=== PATIENT | male | born 1955 | race African-American/Black ===

== ENCOUNTER 2020-02-06 04:07 | Emergency (ER) | payer OTHER ==
[~2020-02-06] VITALS: Ht 182.9 cm; Wt 91.0 kg
[2020-02-06] MEDS ORDERED: FUROSEMIDE 40MG TABLET PO ONE (05:00)
[2020-02-06 05:32] VITALS: BP 161/98
== END 2020-02-06 05:33 | disposition home or self-care (01) ==
LOC: ER 04:07
DX: I50.9 Heart failure, unspecified (principal); R60.0 Localized edema; R73.03 Prediabetes; Z76.0 Encounter for issue of repeat prescription; Z86.73 Personal history of transient ischemic attack (TIA), and cerebral infarction without residual deficits
CPT/HCPCS: 99283

== ENCOUNTER 2020-02-09 04:20 | Inpatient (IN) | payer OTHER ==
[~2020-02-09] VITALS: Ht 185.4 cm; Wt 104.8 kg
[2020-02-09 04:00] VITALS: BP 118/94
[2020-02-09] MEDS ORDERED: ASPIRIN 81MG TABLET PO ONE (06:30)
[2020-02-09] MEDS ORDERED: FUROSEMIDE 40MG/4ML VIAL IV ONE (06:30)
[2020-02-09] MEDS ORDERED: NITROGLYCERIN 0.4MG TABLET SL SL PRN (06:30)
[2020-02-09 06:36] LABS: HEMATOCRIT. 50.1 % (42.0-52.0); HEMOGLOBIN. 16.7 g/dL (14.0-18.0); MEAN CORPUSCULAR HEMOGLOBIN 30.4 pg (28.0-32.0); MEAN CORPUSCULAR VOLUME 91.2 fL (80.0-94.0); MEAN PLATELET VOLUME 9.2 fl (7.4-10.4); PLATELET 140 x1000/uL (130-400); RED BLOOD CELL COUNT 5.49 mill/uL (4.7-6.1); RED CELL DISTRIBUTION WIDTH 15.3 % (11.6-14.6)
[2020-02-09 06:49] LABS: CHLORIDE 106 mEq/L (98-107)
[2020-02-09 06:54] LABS: ETHANOL BLOOD < 10 mg/dL
[2020-02-09 07:23] LABS: PLATELET ESTIMATE NORMAL
[2020-02-09 08:20] LABS: CLARITY URINE CLEAR (CLEAR); COLOR URINE DARK YELLOW (YELLOW); KETONES URINE TRACE (NEGATIVE); LEUKOCYTE ESTERASE URINE NEGATIVE (NEGATIVE); NITRITE URINE NEGATIVE (NEGATIVE); OCCULT BLOOD URINE NEGATIVE (NEGATIVE); PROTEIN URINE 2+ (NEGATIVE); SPECIFIC GRAVITY URINE 1.021 (1.005-1.030)
[2020-02-09 10:06] LABS: *AMPHETAMINES SCREEN URINE NEGATIVE (NEGATIVE); *BARBITURATES SCREEN URINE NEGATIVE (NEGATIVE); *BENZODIAZEPINES SCREEN URINE NEGATIVE (NEGATIVE)
[2020-02-09 10:07] LABS: *COCAINE SCREEN URINE NEGATIVE (NEGATIVE); CANNABINOID URINE SCREEN NEGATIVE (NEGATIVE); METHADONE URINE SCREEN NEGATIVE (NEGATIVE); OPIATES URINE SCREEN NEGATIVE (NEGATIVE); PHENCYCLIDINE URINE SCREEN NEGATIVE (NEGATIVE)
[2020-02-09] MEDS ORDERED: DOCUSATE SODIUM 100MG CAPSULE PO PRN (11:30)
[2020-02-09] MEDS ORDERED: ACETAMINOPHEN 325MG TABLET PO PRN (11:30)
[2020-02-09] MEDS ORDERED: ONDANSETRON HCL 4MG/2ML INJ IV PRN (11:30)
[2020-02-09] MEDS ORDERED: IPRATROPIUM/ALBUTEROL 0.5-3(2.5)MG/3ML NEB NEB PRN (11:30)
[2020-02-09] MEDS ORDERED: CLONIDINE 0.1MG TABLET PO PRN (11:30)
[2020-02-09] MEDS ORDERED: DEXTROSE 50% WATER 50ML SYRINGE IV PRN (11:45)
[2020-02-09 11:55] LABS: CHLORIDE 105 mEq/L (98-107)
[2020-02-09] MEDS: LISINOPRIL 5MG TABLET PO SCH (12:06)
[2020-02-09] MEDS: ENOXAPARIN 30MG/0.3ML SYR SUBCUT SCH ×2 (12:07→21:46)
[2020-02-09] MEDS: CARVEDILOL 3.125 MG TABLET PO SCH ×2 (12:07→21:43)
[2020-02-09 12:10] LABS: CREATINE KINASE MB FRACTION 2.4 ng/mL (0.5-3.6)
[2020-02-09] MEDS: POTASSIUM CHLORIDE 20MEQ TABLET SR PO SCH (12:14)
[2020-02-09] MEDS: BLOOD SUGAR DIAGNOSTIC STRIP TEST SCH ×3 (12:59→21:46)
[2020-02-09] MEDS: INSULIN LISPRO 100 UNITS/ML SUBCUT SCH ×3 (13:30→21:00)
[2020-02-09 15:12] LABS: CREATINE KINASE MB FRACTION 2.4 ng/mL (0.5-3.6)
[2020-02-09 16:00] VITALS: BP 118/94
[2020-02-09] MEDS: FUROSEMIDE 40MG/4ML VIAL IV SCH (18:42)
[2020-02-09 20:26] VITALS: BP 121/82
[2020-02-09 23:30] LABS: CREATINE KINASE MB FRACTION 2.2 ng/mL (0.5-3.6)
[2020-02-10 00:39] VITALS: BP 113/86
[2020-02-10 04:00] VITALS: BP 138/94
[2020-02-10] MEDS: FUROSEMIDE 40MG/4ML VIAL IV SCH ×2 (06:47→16:47)
[2020-02-10] MEDS: INSULIN LISPRO 100 UNITS/ML SUBCUT SCH ×4 (07:15→20:55)
[2020-02-10 07:20] LABS: BASOPHILS % 0.7 % (0.0-2.0); EOSINOPHILS % 1.5 % (0.0-5.0); HEMATOCRIT. 48.2 % (42.0-52.0); HEMOGLOBIN. 16.1 g/dL (14.0-18.0); LYMPHOCYTES % 27.9 % (20.0-50.0); MEAN CORPUSCULAR HEMOGLOBIN 30.4 pg (28.0-32.0); MEAN CORPUSCULAR VOLUME 90.8 fL (80.0-94.0); MEAN PLATELET VOLUME 10.1 fl (7.4-10.4); NEUTROPHILS % 57.9 % (40.0-76.0); PLATELET 130 x1000/uL (130-400); RED BLOOD CELL COUNT 5.31 mill/uL (4.7-6.1); RED CELL DISTRIBUTION WIDTH 14.7 % (11.6-14.6)
[2020-02-10] MEDS: BLOOD SUGAR DIAGNOSTIC STRIP TEST SCH ×4 (07:28→20:55)
[2020-02-10 08:00] VITALS: BP 139/93
[2020-02-10] MEDS: ENOXAPARIN 30MG/0.3ML SYR SUBCUT SCH ×2 (08:46→20:43)
[2020-02-10] MEDS: POTASSIUM CHLORIDE 20MEQ TABLET SR PO SCH (08:46)
[2020-02-10] MEDS: CARVEDILOL 3.125 MG TABLET PO SCH (08:46)
[2020-02-10] MEDS: LISINOPRIL 5MG TABLET PO SCH (08:46)
[2020-02-10 12:00] VITALS: BP 118/91
[2020-02-10 16:00] VITALS: BP 104/83
[2020-02-10 20:00] VITALS: BP 123/99
[2020-02-10] MEDS: CARVEDILOL 6.25 MG TABLET PO SCH (20:54)
[2020-02-11] VITALS: BP 127/90
[2020-02-11 04:00] VITALS: BP 118/83
[2020-02-11] MEDS: INSULIN LISPRO 100 UNITS/ML SUBCUT SCH ×4 (06:17→21:00)
[2020-02-11] MEDS: FUROSEMIDE 40MG/4ML VIAL IV SCH ×2 (06:38→17:36)
[2020-02-11 07:01] LABS: BASOPHILS % 1.1 % (0.0-2.0); EOSINOPHILS % 1.4 % (0.0-5.0); HEMATOCRIT. 49.9 % (42.0-52.0); HEMOGLOBIN. 16.8 g/dL (14.0-18.0); LYMPHOCYTES % 26.9 % (20.0-50.0); MEAN CORPUSCULAR HEMOGLOBIN 30.3 pg (28.0-32.0); MEAN CORPUSCULAR VOLUME 90.1 fL (80.0-94.0); MEAN PLATELET VOLUME 10.2 fl (7.4-10.4); MONOCYTES % 11.8 % (2.0-8.0); NEUTROPHILS % 58.8 % (40.0-76.0); PLATELET 144 x1000/uL (130-400); RED BLOOD CELL COUNT 5.53 mill/uL (4.7-6.1); RED CELL DISTRIBUTION WIDTH 14.9 % (11.6-14.6)
[2020-02-11] MEDS: BLOOD SUGAR DIAGNOSTIC STRIP TEST SCH ×4 (07:05→21:43)
[2020-02-11 07:15] LABS: CHLORIDE 103 mEq/L (98-107)
[2020-02-11 08:00] VITALS: BP 103/83
[2020-02-11] MEDS: POTASSIUM CHLORIDE 20MEQ TABLET SR PO SCH (08:59)
[2020-02-11] MEDS: ENOXAPARIN 30MG/0.3ML SYR SUBCUT SCH ×2 (09:00→22:03)
[2020-02-11] MEDS: CARVEDILOL 6.25 MG TABLET PO SCH ×2 (09:00→22:02)
[2020-02-11] MEDS: LISINOPRIL 5MG TABLET PO SCH (09:00)
[2020-02-11 12:00] VITALS: BP 131/99
[2020-02-11 16:27] VITALS: BP 124/88
[2020-02-11 20:00] VITALS: BP 122/88
[2020-02-11] MEDS ORDERED: DILTIAZEM HCL 5MG/ML 5ML VIAL IV PRN (21:16)
[2020-02-11] MEDS ORDERED: MAGNESIUM 2 G PREMIX 50 ML IV NR (23:00)
[2020-02-12] VITALS (7 sets, daily range): BP systolic 105–150; BP diastolic 80–91
[2020-02-12] MEDS: BLOOD SUGAR DIAGNOSTIC STRIP TEST SCH ×4 (06:08→21:08)
[2020-02-12] MEDS: INSULIN LISPRO 100 UNITS/ML SUBCUT SCH ×4 (06:08→21:11)
[2020-02-12 06:11] LABS: BASOPHILS % 0.7 % (0.0-2.0); EOSINOPHILS % 1.4 % (0.0-5.0); HEMOGLOBIN. 16.3 g/dL (14.0-18.0); LYMPHOCYTES % 27.8 % (20.0-50.0); MEAN CORPUSCULAR HEMOGLOBIN 30.4 pg (28.0-32.0); MEAN CORPUSCULAR VOLUME 89.4 fL (80.0-94.0); MEAN PLATELET VOLUME 9.9 fl (7.4-10.4); MONOCYTES % 13.7 % (2.0-8.0); NEUTROPHILS % 56.4 % (40.0-76.0); PLATELET 140 x1000/uL (130-400); RED BLOOD CELL COUNT 5.37 mill/uL (4.7-6.1)
[2020-02-12] MEDS: FUROSEMIDE 40MG/4ML VIAL IV SCH ×2 (06:27→16:30)
[2020-02-12 07:42] LABS: CHLORIDE 105 mEq/L (98-107)
[2020-02-12] MEDS: POTASSIUM CHLORIDE 20MEQ TABLET SR PO SCH (10:09)
[2020-02-12] MEDS: LISINOPRIL 5MG TABLET PO SCH (10:09)
[2020-02-12] MEDS: CARVEDILOL 6.25 MG TABLET PO SCH ×2 (10:10→21:08)
[2020-02-12] MEDS: ENOXAPARIN 30MG/0.3ML SYR SUBCUT SCH ×2 (10:10→21:07)
[2020-02-13] VITALS (7 sets, daily range): BP systolic 95–129; BP diastolic 62–94
[2020-02-13] MEDS: BLOOD SUGAR DIAGNOSTIC STRIP TEST SCH ×4 (06:12→21:23)
[2020-02-13] MEDS: INSULIN LISPRO 100 UNITS/ML SUBCUT SCH ×4 (06:16→21:23)
[2020-02-13] MEDS: FUROSEMIDE 40MG/4ML VIAL IV SCH ×2 (06:16→18:29)
[2020-02-13 07:14] LABS: BASOPHILS % 0.8 % (0.0-2.0); EOSINOPHILS % 1.7 % (0.0-5.0); HEMATOCRIT. 47.6 % (42.0-52.0); HEMOGLOBIN. 16.3 g/dL (14.0-18.0); LYMPHOCYTES % 30.8 % (20.0-50.0); MEAN CORPUSCULAR HEMOGLOBIN 30.6 pg (28.0-32.0); MEAN CORPUSCULAR VOLUME 89.5 fL (80.0-94.0); MEAN PLATELET VOLUME 9.9 fl (7.4-10.4); NEUTROPHILS % 52.7 % (40.0-76.0); PLATELET 128 x1000/uL (130-400); RED BLOOD CELL COUNT 5.32 mill/uL (4.7-6.1)
[2020-02-13 08:00] LABS: CHLORIDE 105 mEq/L (98-107)
[2020-02-13] MEDS: LISINOPRIL 5MG TABLET PO SCH (09:45)
[2020-02-13] MEDS: CARVEDILOL 6.25 MG TABLET PO SCH ×2 (09:45→21:00)
[2020-02-13] MEDS: ENOXAPARIN 30MG/0.3ML SYR SUBCUT SCH ×2 (09:45→21:23)
[2020-02-13] MEDS: POTASSIUM CHLORIDE 20MEQ TABLET SR PO SCH (09:46)
[2020-02-14] VITALS: BP 118/54
[2020-02-14] MEDS: FUROSEMIDE 40MG/4ML VIAL IV SCH ×2 (06:41→17:27)
[2020-02-14] MEDS: BLOOD SUGAR DIAGNOSTIC STRIP TEST SCH ×4 (06:55→20:24)
[2020-02-14] MEDS: INSULIN LISPRO 100 UNITS/ML SUBCUT SCH ×4 (06:55→20:24)
[2020-02-14 08:00] VITALS: BP 101/70
[2020-02-14] MEDS: LISINOPRIL 5MG TABLET PO SCH (09:00)
[2020-02-14] MEDS: CARVEDILOL 6.25 MG TABLET PO SCH ×2 (09:00→20:23)
[2020-02-14] MEDS: POTASSIUM CHLORIDE 20MEQ TABLET SR PO SCH (09:19)
[2020-02-14] MEDS: ENOXAPARIN 30MG/0.3ML SYR SUBCUT SCH ×2 (09:19→20:24)
[2020-02-14 11:59] VITALS: BP 122/79
[2020-02-14] MEDS ORDERED: COR6 PO (12:16)
[2020-02-14] MEDS ORDERED: LISI-186 PO (12:16)
[2020-02-14] MEDS ORDERED: POTA20TA82 PO (12:16)
[2020-02-14] MEDS ORDERED: FURO40TA5 MT (12:16)
[2020-02-14 16:00] VITALS: BP 106/80
[2020-02-14 20:00] VITALS: BP 115/75
[2020-02-15] VITALS: BP 128/83
[2020-02-15 04:00] VITALS: BP 114/79
[2020-02-15] MEDS: FUROSEMIDE 40MG/4ML VIAL IV SCH ×2 (05:58→17:15)
[2020-02-15] MEDS: INSULIN LISPRO 100 UNITS/ML SUBCUT SCH ×3 (05:58→16:54)
[2020-02-15] MEDS: BLOOD SUGAR DIAGNOSTIC STRIP TEST SCH ×3 (06:04→16:54)
[2020-02-15 07:39] VITALS: BP 122/84
[2020-02-15 08:15] VITALS: BP 122/84
[2020-02-15] MEDS: ENOXAPARIN 30MG/0.3ML SYR SUBCUT SCH (08:24)
[2020-02-15] MEDS: LISINOPRIL 5MG TABLET PO SCH (08:24)
[2020-02-15] MEDS: CARVEDILOL 6.25 MG TABLET PO SCH (08:24)
[2020-02-15] MEDS: POTASSIUM CHLORIDE 20MEQ TABLET SR PO SCH (08:24)
[2020-02-15 12:00] VITALS: BP 114/82
[2020-02-15 16:00] VITALS: BP 107/80
== END 2020-02-15 18:11 | disposition home or self-care (01) | DRG 194 ==
LOC: ER 05:50 → 5WST 08:31 → EDBEDREQ 08:44 → ENRESERV 14:49
PROVIDERS: ADMIT Internal Medicine; ATTEND Internal Medicine
DX: I11.0 Hypertensive heart disease with heart failure (principal); J96.00 Acute respiratory failure, unspecified whether with hypoxia or hypercapnia; I50.43 Acute on chronic combined systolic (congestive) and diastolic (congestive) heart failure; I21.A1 Myocardial infarction type 2; I42.9 Cardiomyopathy, unspecified; I48.92 Unspecified atrial flutter; D72.821 Monocytosis (symptomatic); E44.0 Moderate protein-calorie malnutrition; R80.9 Proteinuria, unspecified; E11.65 Type 2 diabetes mellitus with hyperglycemia; I07.1 Rheumatic tricuspid insufficiency; I31.3 Pericardial effusion (noninflammatory); I27.20 Pulmonary hypertension, unspecified; Z86.73 Personal history of transient ischemic attack (TIA), and cerebral infarction without residual deficits
CPT/HCPCS: 36415; 71045; 80048; 80053; 80061; 80305; 80320; 81003; 82550; 82553; 82962; 83036; 83735; 83880; 84443; 84484; 85025; 93005; 93306; 93970; 99291; J1650; J1815; J1940; J3475; G0480

== ENCOUNTER 2021-09-30 04:32 | Inpatient (IN) | payer OTHER ==
[~2021-09-30] VITALS: Ht 182.9 cm; Wt 111.1 kg
[~2021-09-30 04:32] MED LIST: COR6 PO; FURO40TA5 MT; LISI-186 PO; POTA20TA82 PO
[2021-09-30] MEDS ORDERED: NITROGLYCERIN OINT 1GM/INCH UDPKT TD ONE (04:45)
[2021-09-30] MEDS ORDERED: FUROSEMIDE 40MG/4ML VIAL IV ONE (04:45)
[2021-09-30 05:29] LABS: EOSINOPHILS % 1.6 % (0.0-5.0); HEMATOCRIT. 51.8 % (42.0-52.0); HEMOGLOBIN. 16.8 g/dL (14.0-18.0); LYMPHOCYTES % 17.2 % (20.0-50.0); MEAN CORPUSCULAR HEMOGLOBIN 29.5 pg (28.0-32.0); MEAN CORPUSCULAR VOLUME 91.4 fL (80.0-94.0); MEAN PLATELET VOLUME 9.6 fl (7.4-10.4); MONOCYTES % 12.5 % (2.0-8.0); NEUTROPHILS % 67.7 % (40.0-76.0); PLATELET 142 x1000/uL (130-400); RED BLOOD CELL COUNT 5.67 mill/uL (4.7-6.1)
[2021-09-30 05:34] LABS: CHLORIDE 104 mEq/L (98-107)
[2021-09-30] MEDS ORDERED: ACETAMINOPHEN 325MG TABLET PO PRN ×2 (07:00)
[2021-09-30] MEDS ORDERED: ONDANSETRON HCL 4MG/2ML INJ IV PRN (07:00)
[2021-09-30] MEDS ORDERED: NITROGLYCERIN 0.4MG TABLET SL SL PRN (07:00)
[2021-09-30] MEDS ORDERED: MAGNESIUM/ALUMINUM HYDROXIDE/SIMETHICONE 30ML UDC PO PRN (07:00)
[2021-09-30] MEDS ORDERED: CLONIDINE 0.1MG TABLET PO PRN (07:00)
[2021-09-30] MEDS ORDERED: IPRATROPIUM/ALBUTEROL 0.5-3(2.5)MG/3ML NEB NEB PRN (07:00)
[2021-09-30] MEDS ORDERED: DOCUSATE SODIUM 100MG CAPSULE PO PRN (07:00)
[2021-09-30] MEDS ORDERED: DEXTROSE 50% WATER 50ML SYRINGE IV PRN (07:00)
[2021-09-30] MEDS ORDERED: ZOLPIDEM TARTRATE 5MG TABLET PO PRN (07:00)
[2021-09-30] MEDS ORDERED: GUAIFENESIN 200MG/10ML SUGAR FREE UDC PO PRN (07:00)
[2021-09-30 08:12] LABS: *AMPHETAMINES SCREEN URINE NEGATIVE (NEGATIVE); *BARBITURATES SCREEN URINE NEGATIVE (NEGATIVE)
[2021-09-30 08:13] LABS: *BENZODIAZEPINES SCREEN URINE NEGATIVE (NEGATIVE); *COCAINE SCREEN URINE NEGATIVE (NEGATIVE); METHADONE URINE SCREEN NEGATIVE (NEGATIVE); OPIATES URINE SCREEN NEGATIVE (NEGATIVE); PHENCYCLIDINE URINE SCREEN NEGATIVE (NEGATIVE)
[2021-09-30 08:14] LABS: CANNABINOID URINE SCREEN NEGATIVE (NEGATIVE)
[2021-09-30 08:19] LABS: ETHANOL BLOOD < 10 mg/dL
[2021-09-30 08:22] LABS: LDL CHOLESTEROL 59 mg/dL (5-100)
[2021-09-30 08:24] LABS: HDL CHOLESTEROL 33 mg/dL (40-59)
[2021-09-30] MEDS: BLOOD SUGAR DIAGNOSTIC STRIP TEST SCH ×4 (08:57→20:25)
[2021-09-30] MEDS: APIXABAN 5 MG TABLET PO SCH ×2 (09:00→21:45)
[2021-09-30] MEDS: METOPROLOL TARTRATE 50MG TABLET PO SCH ×2 (09:00→21:46)
[2021-09-30] MEDS ORDERED: ASPIRIN 325MG EC TABLET PO SCH ×2 (09:00)
[2021-09-30] MEDS: SPIRONOLACTONE 25MG TABLET PO SCH ×2 (09:16→21:45)
[2021-09-30] MEDS: INSULIN LISPRO 100 UNITS/ML SUBCUT SCH ×4 (09:17→21:52)
[2021-09-30] MEDS: FAMOTIDINE 20MG TABLET PO SCH ×2 (09:17→21:46)
[2021-09-30 12:00] VITALS: BP 104/77
[2021-09-30] MEDS ORDERED: DILTIAZEM HCL 60MG TABLET PO SCH (12:00)
[2021-09-30 13:26] VITALS: BP 104/77
[2021-09-30 16:00] VITALS: BP 120/89
[2021-09-30 17:39] LABS: CHLORIDE 106 mEq/L (98-107)
[2021-09-30] MEDS: FUROSEMIDE 40MG/4ML VIAL IVP SCH (17:44)
[2021-09-30 17:49] LABS: CREATINE KINASE 173 IU/L (39-308)
[2021-09-30 17:50] LABS: CREATINE KINASE MB FRACTION 3.6 ng/mL (0.5-3.6)
[2021-09-30 20:00] VITALS: BP 107/83
[2021-09-30 21:00] VITALS: BP 116/85
[2021-10-01] VITALS: BP 111/70
[2021-10-01 04:00] VITALS: BP 101/74
[2021-10-01] MEDS: FUROSEMIDE 40MG/4ML VIAL IVP SCH ×2 (06:01→18:45)
[2021-10-01] MEDS: BLOOD SUGAR DIAGNOSTIC STRIP TEST SCH ×4 (06:12→21:41)
[2021-10-01] MEDS: INSULIN LISPRO 100 UNITS/ML SUBCUT SCH ×4 (06:12→21:00)
[2021-10-01 08:00] VITALS: BP 103/79
[2021-10-01] MEDS: METOPROLOL TARTRATE 50MG TABLET PO SCH ×2 (09:00→21:41)
[2021-10-01] MEDS: APIXABAN 5 MG TABLET PO SCH ×2 (09:00→21:41)
[2021-10-01] MEDS: SPIRONOLACTONE 25MG TABLET PO SCH ×2 (09:00→21:00)
[2021-10-01] MEDS: ASPIRIN 81MG EC TABLET PO SCH (09:01)
[2021-10-01] MEDS: FAMOTIDINE 20MG TABLET PO SCH ×2 (09:01→21:41)
[2021-10-01 09:52] LABS: BASOPHILS % 0.9 % (0.0-2.0); EOSINOPHILS % 1.3 % (0.0-5.0); HEMATOCRIT. 49.5 % (42.0-52.0); HEMOGLOBIN. 16.5 g/dL (14.0-18.0); LYMPHOCYTES % 18.2 % (20.0-50.0); MEAN CORPUSCULAR HEMOGLOBIN 30.3 pg (28.0-32.0); MEAN CORPUSCULAR VOLUME 90.7 fL (80.0-94.0); MEAN PLATELET VOLUME 9.8 fl (7.4-10.4); MONOCYTES % 14.9 % (2.0-8.0); NEUTROPHILS % 64.7 % (40.0-76.0); PLATELET 136 x1000/uL (130-400); RED BLOOD CELL COUNT 5.45 mill/uL (4.7-6.1); RED CELL DISTRIBUTION WIDTH 16.1 % (11.6-14.6)
[2021-10-01 09:56] LABS: CHLORIDE 105 mEq/L (98-107)
[2021-10-01 12:00] VITALS: BP 103/77
[2021-10-01 16:00] VITALS: BP 97/74
[2021-10-01 18:16] LABS: CHLORIDE 106 mEq/L (98-107)
[2021-10-01 20:22] VITALS: BP 110/87
[2021-10-02] VITALS: BP 116/72
[2021-10-02 04:00] VITALS: BP 133/62
[2021-10-02] MEDS: FUROSEMIDE 40MG/4ML VIAL IVP SCH ×2 (06:26→18:37)
[2021-10-02] MEDS: BLOOD SUGAR DIAGNOSTIC STRIP TEST SCH ×4 (06:26→21:56)
[2021-10-02] MEDS: INSULIN LISPRO 100 UNITS/ML SUBCUT SCH ×4 (07:40→21:00)
[2021-10-02 08:00] VITALS: BP 112/77
[2021-10-02] MEDS: ASPIRIN 81MG EC TABLET PO SCH (09:09)
[2021-10-02] MEDS: METOPROLOL TARTRATE 50MG TABLET PO SCH ×2 (09:10→21:56)
[2021-10-02] MEDS: SPIRONOLACTONE 25MG TABLET PO SCH ×2 (09:10→21:55)
[2021-10-02] MEDS: FAMOTIDINE 20MG TABLET PO SCH ×2 (09:11→21:55)
[2021-10-02] MEDS: APIXABAN 5 MG TABLET PO SCH ×2 (09:11→21:55)
[2021-10-02 12:00] VITALS: BP 101/75
[2021-10-02 16:00] VITALS: BP 96/76
[2021-10-02] MEDS ORDERED: CARV3.1242 MT (18:11)
[2021-10-02] MEDS ORDERED: FURO40TA5 PO (18:14)
[2021-10-02] MEDS ORDERED: ASPI-1497 PO (18:15)
[2021-10-02 20:20] VITALS: BP 104/74
[2021-10-03 00:01] VITALS: BP 92/65
[2021-10-03] MEDS: FUROSEMIDE 40MG/4ML VIAL IVP SCH ×3 (05:38→21:38)
[2021-10-03 06:00] VITALS: BP 112/52
[2021-10-03] MEDS: BLOOD SUGAR DIAGNOSTIC STRIP TEST SCH ×4 (06:44→21:39)
[2021-10-03] MEDS: INSULIN LISPRO 100 UNITS/ML SUBCUT SCH ×4 (06:44→21:31)
[2021-10-03] MEDS: ASPIRIN 81MG EC TABLET PO SCH (08:26)
[2021-10-03] MEDS: METOPROLOL TARTRATE 50MG TABLET PO SCH ×2 (08:26→21:38)
[2021-10-03] MEDS: SPIRONOLACTONE 25MG TABLET PO SCH ×2 (08:27→21:38)
[2021-10-03] MEDS: FAMOTIDINE 20MG TABLET PO SCH ×2 (08:27→21:39)
[2021-10-03] MEDS: APIXABAN 5 MG TABLET PO SCH ×2 (08:27→21:39)
[2021-10-03] MEDS ORDERED: METOLAZONE 2.5MG TABLET PO SCH (11:15)
[2021-10-03 12:00] VITALS: BP 116/80
[2021-10-03] MEDS: METOLAZONE 2.5MG TABLET PO SCH (12:36)
[2021-10-03 16:00] VITALS: BP 108/87
[2021-10-03 20:00] VITALS: BP 120/87
[2021-10-04] VITALS: BP 118/91
[2021-10-04 04:00] VITALS: BP 144/79
[2021-10-04] MEDS: INSULIN LISPRO 100 UNITS/ML SUBCUT SCH (07:40)
[2021-10-04] MEDS: BLOOD SUGAR DIAGNOSTIC STRIP TEST SCH (07:45)
[2021-10-04] MEDS: METOLAZONE 2.5MG TABLET PO SCH (07:51)
[2021-10-04 08:00] VITALS: BP 125/78
[2021-10-04] MEDS: ASPIRIN 81MG EC TABLET PO SCH (09:02)
[2021-10-04] MEDS: FUROSEMIDE 40MG/4ML VIAL IVP SCH (09:03)
[2021-10-04] MEDS: SPIRONOLACTONE 25MG TABLET PO SCH (09:03)
[2021-10-04] MEDS: APIXABAN 5 MG TABLET PO SCH (09:03)
[2021-10-04] MEDS: FAMOTIDINE 20MG TABLET PO SCH (09:03)
[2021-10-04] MEDS: METOPROLOL TARTRATE 50MG TABLET PO SCH (09:04)
[2021-10-04 10:47] VITALS: BP 125/78
[2021-10-05 16:15] LABS: FOLIC ACID (FOLATE) SERUM 12.6 ng/mL (>5.38)
== END 2021-10-04 11:58 | disposition home or self-care (01) | DRG 194 ==
LOC: ER 04:32 → 8WST 06:06 → ENRESERV 08:44 → 8WST 10-01 21:59
PROVIDERS: ADMIT Internal Medicine; ATTEND Internal Medicine
DX: I11.0 Hypertensive heart disease with heart failure (principal); J96.01 Acute respiratory failure with hypoxia; E44.0 Moderate protein-calorie malnutrition; I48.92 Unspecified atrial flutter; I47.2 Ventricular tachycardia; I27.20 Pulmonary hypertension, unspecified; I42.8 Other cardiomyopathies; I48.0 Paroxysmal atrial fibrillation; I50.43 Acute on chronic combined systolic (congestive) and diastolic (congestive) heart failure; R77.8 Other specified abnormalities of plasma proteins; I08.1 Rheumatic disorders of both mitral and tricuspid valves; Z20.822 Contact with and (suspected) exposure to COVID-19; Z79.4 Long term (current) use of insulin; Z86.73 Personal history of transient ischemic attack (TIA), and cerebral infarction without residual deficits; Z91.14 Patient's other noncompliance with medication regimen; Z91.19 Patient's noncompliance with other medical treatment and regimen; Z79.899 Other long term (current) drug therapy; Z68.33 Body mass index [BMI] 33.0-33.9, adult; E11.65 Type 2 diabetes mellitus with hyperglycemia
CPT/HCPCS: 36415; 71045; 80048; 80053; 80061; 80305; 80320; 82550; 82553; 82607; 82746; 82962; 83036; 83735; 83880; 84145; 84443; 84484; 85025; 87426; 93005; 93306; 93970; 97162; 97165; 99291; J1815; J1940; G0480